=== PATIENT | male | born 2005 | race Two or more races ===

== ENCOUNTER 2023-09-20 07:32 | Emergency (ER) | payer OTHER ==
[~2023-09-20] VITALS: Ht 185.4 cm; Wt 95.3 kg
[2023-09-20 10:06] LABS: HEMATOCRIT 44.6 % (39.0-48.0); HEMOGLOBIN 15.6 g/dL (13-16.00); MEAN CELL VOLUME 87.3 fL (80.0-100.00); MEAN CORPUSCULAR HEMOGLOBIN 30.6 pg (27.00-32.0); PLATELET COUNT 206 K/uL (150-450); RED BLOOD COUNT 5.11 M/uL (4.00-6.00)
[2023-09-20 10:13] LABS: ALBUMIN 4.4 gm/dL (3.4-5.0); BILIRUBIN TOTAL 1.27 mg/dL (0.3-1.2); CALCIUM 9.4 mg/dL (8.5-10.1); CREATININE SERUM 1.14 mg/dL (0.70-1.30); GFR 82.75; POTASSIUM 3.75 mEq/L (3.5-5.1); TOTAL PROTEIN 8.4 gm/dL (6.4-8.2)
== END 2023-09-20 14:02 | disposition home or self-care (01) ==
LOC: EMR PED 07:32 → ER 07:32 → EMR PED 08:31
PROVIDERS: Emergency Medicine Pediatric Emergency Medicine
DX: R11.10 Vomiting, unspecified (principal); E86.0 Dehydration; R10.9 Unspecified abdominal pain; Z20.822 Contact with and (suspected) exposure to COVID-19; Z88.0 Allergy status to penicillin